=== PATIENT | male | born 1995 | race Caucasian/White ===

== ENCOUNTER 2018-08-16 17:19 | Emergency (ER) | payer OTHER ==
[2018-08-16] MEDS ORDERED: PROPARACAINE 0.5% 15 ML OPHT DROP OP ONE (18:31)
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
[2018-08-16 18:58] VITALS: BP 135/75
== END 2018-08-16 18:45 | disposition home or self-care (01) ==
DX: H53.8 Other visual disturbances (principal); Z77.098 Contact with and (suspected) exposure to other hazardous, chiefly nonmedicinal, chemicals